=== PATIENT | female | born 1975 | race Caucasian/White ===

== ENCOUNTER 2020-11-15 13:51 | Emergency (ER) | payer BC, OTHER ==
[2020-11-15] MEDS ORDERED: SODIUM CHLORIDE 0.9% 1,000 ML IV STA ×2 (14:41)
--- NOTE | 2020-11-15 14:45 | ED ---
Fever HPI - General Chief Complaint: Fever Stated Complaint: EMILIANA Time Seen by Provider: 11/15/20 14:10 Source: patient, RN notes reviewed Mode of arrival: ambulatory Limitations: no limitations - History of Present Illness Initial Comments: This is a 45-year-old female who presents with complaints of fever bodyaches fatigue weakness lightheadedness increased thirst fevers chills and sweats going on for the past 10 days. She states she has she is here with some ALLERGY type symptoms approximately 2 weeks ago this did respond Zoll. She then about 10 days ago started having intermittent episodes of body aches and sinus congestion. She also has a cough today with clear phlegm she does states she drinks a lot of water but has noticed her urine output is less than is darker. She has had fevers chills sweats and over last day or 2 and started developing bilateral ear pain more so on the right than the left she is a nonsmoker is no history of asthma or COPD. She does feel slightly short of breath at this time. MD Complaint: fever, malaise, weakness, other - Related Data Home Medications Medication Instructions Recorded Confirmed Atorvastatin [Lipitor] 10 mg PO HS 11/15/20 11/15/20 Levothyroxine Sodium [Synthroid] 75 mcg PO DAILY 11/15/20 11/15/20 Venlafaxine HCl [Effexor XR] 150 mg PO HS 11/15/20 11/15/20 hydroCHLOROthiazide [Hydrodiuril] 12.5 mg PO DAILY 11/15/20 11/15/20 Previous Rx's Medication Instructions Recorded Albuterol Inhaler [Ventolin Hfa 2 puff INHALATION RT-QID #1 puff 11/15/20 Inhaler] Allergies Allergy/AdvReac Type Severity Reaction Status Date / Time No Known Allergies Allergy Verified 11/15/20 15:02 Review of Systems ROS Statement: Those systems with pertinent positive or pertinent negative responses have been documented in the HPI. ROS Other: All systems not noted in ROS Statement are negative. Past Medical History Past Medical History: No Reported History History of Any Multi-Drug Resistant Organisms: None Reported Past Surgical History: No Surgical Hx Reported Past Psychological History: Anxiety Smoking Status: Never smoker Past Alcohol Use History: None Reported Past Drug Use History: None Reported General Exam - General Exam Comments Initial Comments: This is a well-developed well-nourished awake alert oriented 3 female Limitations: no limitations General appearance: alert, in no apparent distress Head exam: Present: atraumatic, normocephalic, normal inspection Eye exam: Present: normal appearance, PERRL, EOMI. Absent: scleral icterus, conjunctival injection, periorbital swelling ENT exam: Present: mucous membranes dry, other (Bilateral erythema to both TMs more swelling right than the left some retraction noted on the right) Neck exam: Present: normal inspection. Absent: tenderness, meningismus, lymphadenopathy Respiratory exam: Present: decreased breath sounds. Absent: respiratory distress, wheezes, rales, rhonchi, stridor Cardiovascular Exam: Present: normal rhythm, tachycardia, normal heart sounds. Absent: systolic murmur, diastolic murmur, rubs, gallop, clicks GI/Abdominal exam: Present: soft, normal bowel sounds. Absent: distended, tenderness, guarding, rebound, rigid Extremities exam: Present: normal inspection, full ROM, normal capillary refill. Absent: tenderness, pedal edema, joint swelling, calf tenderness Back exam: Present: normal inspection Neurological exam: Present: alert, oriented X3, CN II-XII intact Psychiatric exam: Present: normal affect, normal mood Skin exam: Present: warm, dry, intact, normal color. Absent: rash Course Vital Signs 11/15/20 11/15/20 11/15/20 14:09 14:32 16:30 Temperature 102.7 F H Pulse Rate 121 H 108 H Respiratory 26 H 20 18 Rate Blood Pressure 121/75 130/81 O2 Sat by Pulse 93 L 96 Oximetry 11/15/20 11/15/20 17:07 18:10 Temperature 103 F H 101.3 F H Pulse Rate Respiratory Rate Blood Pressure O2 Sat by Pulse Oximetry Medical Decision Making - Medical Decision Making The patient was a candidate for the COVID-19 antibody. She did agree to have it there. She was in satisfactory condition for discharge after infusion. She had no side effects that she could proceed. She did get some improvement from an inhaler she will be discharged with a prescription for that we also discussed vitamin C, vitamin D 3 and zinc as well as possible melatonin use. He will follow-up with her doctor return when necessary - Lab Data Result diagrams: 11/15/20 14:51 11/15/20 14:51 Lab Results 11/15/20 11/15/20 11/15/20 Range/Units 14:45 14:51 14:51 WBC 6.9 (3.8-10.6) k/uL RBC 5.17 (3.80-5.40) m/uL Hgb 14.7 (11.4-16.0) gm/dL Hct 44.8 (34.0-46.0) % MCV 86.6 (80.0-100.0) fL MCH 28.4 (25.0-35.0) pg MCHC 32.8 (31.0-37.0) g/dL RDW 13.6 (11.5-15.5) % Plt Count 214 (150-450) k/uL MPV 7.2 Neutrophils % 83 % Lymphocytes % 13 % Monocytes % 2 % Eosinophils % 0 % Basophils % 0 % Neutrophils # 5.7 (1.3-7.7) k/uL Lymphocytes # 0.9 L (1.0-4.8) k/uL Monocytes # 0.1 (0-1.0) k/uL Eosinophils # 0.0 (0-0.7) k/uL Basophils # 0.0 (0-0.2) k/uL D-Dimer 1.05 H (<0.60) mg/L FEU Sodium (137-145) mmol/L Potassium (3.5-5.1) mmol/L Chloride (98-107) mmol/L Carbon Dioxide (22-30) mmol/L Anion Gap mmol/L BUN (7-17) mg/dL Creatinine (0.52-1.04) mg/dL Est GFR (CKD-EPI)AfAm (>60 ml/min/1.73 sqM) Est GFR (CKD-EPI)NonAf (>60 ml/min/1.73 sqM) Glucose (74-99) mg/dL Plasma Lactic Acid Drake (0.7-2.0) mmol/L Calcium (8.4-10.2) mg/dL Magnesium (1.6-2.3) mg/dL Total Bilirubin (0.2-1.3) mg/dL AST (14-36) U/L ALT (4-34) U/L Alkaline Phosphatase (38-126) U/L Creatine Kinase (30-135) U/L Troponin I (0.000-0.034) ng/mL C-Reactive Protein (<1.0) mg/dL NT-Pro-B Natriuret Pep pg/mL Total Protein (6.3-8.2) g/dL Albumin (3.5-5.0) g/dL Urine Color Urine Appearance (Clear) Urine pH (5.0-8.0) Ur Specific [place] (1.001-1.035) Urine Protein (Negative) Urine Glucose (UA) (Negative) Urine Ketones (Negative) Urine Blood (Negative) Urine Nitrite (Negative) Urine Bilirubin (Negative) Urine Urobilinogen (<2.0) mg/dL Ur Leukocyte Esterase (Negative) Coronavirus (PCR) Detected A (Not Detectd) 11/15/20 11/15/20 11/15/20 Range/Units 14:51 14:51 14:51 WBC (3.8-10.6) k/uL RBC (3.80-5.40) m/uL Hgb (11.4-16.0) gm/dL Hct (34.0-46.0) % MCV (80.0-100.0) fL MCH (25.0-35.0) pg MCHC (31.0-37.0) g/dL RDW (11.5-15.5) % Plt Count (150-450) k/uL MPV Neutrophils % % Lymphocytes % % Monocytes % % Eosinophils % % Basophils % % Neutrophils # (1.3-7.7) k/uL Lymphocytes # (1.0-4.8) k/uL Monocytes # (0-1.0) k/uL Eosinophils # (0-0.7) k/uL Basophils # (0-0.2) k/uL D-Dimer (<0.60) mg/L FEU Sodium 129 L (137-145) mmol/L Potassium 3.2 L (3.5-5.1) mmol/L Chloride 90 L (98-107) mmol/L Carbon Dioxide 30 (22-30) mmol/L Anion Gap 9 mmol/L BUN 21 H (7-17) mg/dL Creatinine 0.91 (0.52-1.04) mg/dL Est GFR (CKD-EPI)AfAm 88 (>60 ml/min/1.73 sqM) Est GFR (CKD-EPI)NonAf 76 (>60 ml/min/1.73 sqM) Glucose 99 (74-99) mg/dL Plasma Lactic Acid Drake 1.4 (0.7-2.0) mmol/L Calcium 9.8 (8.4-10.2) mg/dL Magnesium 1.7 (1.6-2.3) mg/dL Total Bilirubin 0.5 (0.2-1.3) mg/dL AST 37 H (14-36) U/L ALT 27 (4-34) U/L Alkaline Phosphatase 46 (38-126) U/L Creatine Kinase 76 (30-135) U/L Troponin I 0.018 (0.000-0.034) ng/mL C-Reactive Protein 7.5 H (<1.0) mg/dL NT-Pro-B Natriuret Pep pg/mL Total Protein 7.6 (6.3-8.2) g/dL Albumin 4.3 (3.5-5.0) g/dL Urine Color Urine Appearance (Clear) Urine pH (5.0-8.0) Ur Specific [place] (1.001-1.035) Urine Protein (Negative) Urine Glucose (UA) (Negative) Urine Ketones (Negative) Urine Blood (Negative) Urine Nitrite (Negative) Urine Bilirubin (Negative) Urine Urobilinogen (<2.0) mg/dL Ur Leukocyte Esterase (Negative) Coronavirus (PCR) (Not Detectd) 11/15/20 11/15/20 Range/Units 14:51 17:30 WBC (3.8-10.6) k/uL RBC (3.80-5.40) m/uL Hgb (11.4-16.0) gm/dL Hct (34.0-46.0) % MCV (80.0-100.0) fL MCH (25.0-35.0) pg MCHC (31.0-37.0) g/dL RDW (11.5-15.5) % Plt Count (150-450) k/uL MPV Neutrophils % % Lymphocytes % % Monocytes % % Eosinophils % % Basophils % % Neutrophils # (1.3-7.7) k/uL Lymphocytes # (1.0-4.8) k/uL Monocytes # (0-1.0) k/uL Eosinophils # (0-0.7) k/uL Basophils # (0-0.2) k/uL D-Dimer (<0.60) mg/L FEU Sodium (137-145) mmol/L Potassium (3.5-5.1) mmol/L Chloride (98-107) mmol/L Carbon Dioxide (22-30) mmol/L Anion Gap mmol/L BUN (7-17) mg/dL Creatinine (0.52-1.04) mg/dL Est GFR (CKD-EPI)AfAm (>60 ml/min/1.73 sqM) Est GFR (CKD-EPI)NonAf (>60 ml/min/1.73 sqM) Glucose (74-99) mg/dL Plasma Lactic Acid Drake (0.7-2.0) mmol/L Calcium (8.4-10.2) mg/dL Magnesium (1.6-2.3) mg/dL Total Bilirubin (0.2-1.3) mg/dL AST (14-36) U/L ALT (4-34) U/L Alkaline Phosphatase (38-126) U/L Creatine Kinase (30-135) U/L Troponin I (0.000-0.034) ng/mL C-Reactive Protein (<1.0) mg/dL NT-Pro-B Natriuret Pep 22 pg/mL Total Protein (6.3-8.2) g/dL Albumin (3.5-5.0) g/dL Urine Color Light Yellow Urine Appearance Clear (Clear) Urine pH 6.5 (5.0-8.0) Ur Specific [place] 1.015 (1.001-1.035) Urine Protein Negative (Negative) Urine Glucose (UA) Negative (Negative) Urine Ketones Negative (Negative) Urine Blood Negative (Negative) Urine Nitrite Negative (Negative) Urine Bilirubin Negative (Negative) Urine Urobilinogen <2.0 (<2.0) mg/dL Ur Leukocyte Esterase Negative (Negative) Coronavirus (PCR) (Not Detectd) - EKG Data -: EKG Interpreted by Me EKG shows normal: sinus rhythm EKG Comments: Sinus tachycardia 121. Interval 144 QRS 84 QT since QTC 360/448 nonspecific inferior configuration - Radiology Data Radiology results: report reviewed (Imaging reviewed evidence of bilateral infiltrates consistent with COVID-19 preceded complete report), image reviewed Disposition Clinical Impression: Pneumonia due to COVID-19 virus, Febrile illness, acute, Bronchospasm, acute Disposition: HOME SELF-CARE Condition: Good Instructions (If sedation given, give patient instructions): Fever in Adults (ED), Viral Pneumonia (ED) Prescriptions: Albuterol Inhaler [Ventolin Hfa Inhaler] 2 puff INHALATION RT-QID #1 puff Is patient prescribed a controlled substance at d/c from ED?: No Referrals: Stephen Leon MD [Primary Care Provider] - 1-2 days
[2020-11-15 15:00] LABS: Basophils % (A) 0 %; Eosinophils % (A) 0 %; HCT 44.8 % (34.0-46.0); HGB 14.7 gm/dL (11.4-16.0); Lymphocytes # (A) 0.9 k/uL (1.0-4.8); Lymphocytes % (A) 13 %; MCH 28.4 pg (25.0-35.0); MCHC 32.8 g/dL (31.0-37.0); MCV 86.6 fL (80.0-100.0); Mean Platelet Volume 7.2; Monocytes # (A) 0.1 k/uL (0-1.0); Monocytes % (A) 2 %; Neutrophils # (A) 5.7 k/uL (1.3-7.7); Neutrophils % (A) 83 %; Platelet Count 214 k/uL (150-450); RBC 5.17 m/uL (3.80-5.40); RDW 13.6 % (11.5-15.5); WBC 6.9 k/uL (3.8-10.6)
--- NOTE | 2020-11-15 15:06 | XR ---
EXAMINATION TYPE: XR chest 2V DATE OF EXAM: 11/15/2020 COMPARISON: NONE HISTORY: Fever TECHNIQUE: 2 views FINDINGS: There is coarse interstitial infiltrates in both lungs. Heart size is normal. There are no hilar masses. There is no pleural effusion. Bony thorax is intact. IMPRESSION: Mild bilateral interstitial pneumonia.
[2020-11-15 15:16] LABS: Albumin 4.3 g/dL (3.5-5.0); C Reactive Protein 7.5 mg/dL (<1.0); Calcium 9.8 mg/dL (8.4-10.2); Magnesium 1.7 mg/dL (1.6-2.3); Potassium 3.2 mmol/L (3.5-5.1); Total Bilirubin 0.5 mg/dL (0.2-1.3); Total Protein 7.6 g/dL (6.3-8.2)
[2020-11-15] MEDS ORDERED: ALBUTEROL HFA INHALER INHALATION STA (16:06)
[2020-11-15 16:31] VITALS: BP 130/81; PULSE 108; RESP 18
[2020-11-15] MEDS ORDERED: ACETAMINOPHEN TAB 500 MG TAB PO STA (17:06)
--- NOTE | 2020-11-15 17:21 | CT ---
EXAMINATION TYPE: CT angio chest DATE OF EXAM: 11/15/2020 COMPARISON: None HISTORY: elevated d-dimer, +covid CT DLP: 697 mGycm Automated exposure control for dose reduction was used. CONTRAST: Performed with IV Contrast, patient injected with 70cc mL of Isovue 370. There is patchy peripheral pulmonary interstitial infiltrates. This is seen in the upper and lower lo bes bilaterally. Thoracic aorta is intact. There is no evidence of aneurysm or dissection. There are a few paratracheal lymph nodes measuring less than 1 cm. There are no hilar masses. Heart size is campbell rly normal. There is no pericardial effusion. There is no pleural effusion. There is some fatty infil tration of the liver. I see no evidence of filling defect in the pulmonary arteries. The bony thorax is intact. There is no compression fracture. Sternum is intact. IMPRESSION: No evidence of pulmonary embolism. Patchy bilateral pulmonary interstitial pneumonia. Fatty infiltration of the liver.
[2020-11-15 17:51] LABS: Appearance,Urine Clear (Clear); Bilirubin,Urine Negative (Negative); Blood,Urine Negative (Negative); Color,Urine Light Yellow; Glucose,Urine (UA) Negative (Negative); Ketones,Urine Negative (Negative); Leukocyte Esterase,Urine Negative (Negative); Nitrite,Urine Negative (Negative); PH, Urine 6.5 (5.0-8.0); Protein,Urine Negative (Negative); Specific Gravity,Urine 1.015 (1.001-1.035); Urobilinogen,Urine <2.0 mg/dL (<2.0)
[2020-11-15] MEDS ORDERED: SODIUM CHLORIDE 0.9% 50 ML IVPB ONE (18:00)
[2020-11-15 18:11] VITALS: TEMP 101.3
[2020-11-15] MEDS ORDERED: BAMLANIVIMAB (EUA) 700 MG, ETESEVIMAB (EUA) 1,400 MG in SODIUM CHLORIDE 0.9% 50 ML IVPB ONE (18:15)
== END 2020-11-15 19:59 | disposition home or self-care (01) ==
LOC: EC 13:51
DX: U07.1 COVID-19 (principal); J12.82 Pneumonia due to coronavirus disease 2019; J98.01 Acute bronchospasm
CPT/HCPCS: 36415; 94640; 93005; 85379; 83880; 80053; 82550; 83605; 83735; 84484; 85025; 86140; 81003; 87040; 87635; 71046; 71275; 99285; 96365; Q9967; Q0245

== ENCOUNTER → 2024-11-21 | Outpatient (CLI) | payer BC ==
[2024-11-21 15:26] VITALS: BP 123/81; PULSE 61; RESP 16; TEMP 97.5
--- NOTE | 2024-11-21 16:03 | P.SLEEP ---
History of Present Illness DATE: 11/21/2024 CONSULTATION/NEW PATIENT EVALUATION HISTORY OF PRESENT ILLNESS/SLEEP-WAKE EVALUATION: 49-year-old lady had been e valuated in the sleep center for possible obstructive sleep apnea hypopnea syndrome. SLEEP SCHEDULE: Usually sleep schedule from 10 PM to 6:30 AM on working days and from 10 PM to 9 AM on weekend. FALLING ASLEEP: No problems with falling asleep, no TV in bedroom. DURING SLEEP: Patient has loud snoring, witnessed episodes of stop breathing during the sleep. Patient wakes up from sleep multiple times with up to 3 episodes of nocturia. Episodes of gasping for air, restless legs, sleep talking. Positive history of grinding and clenching teeth. No history of hypnogogical hallucinations, sleep paralysis, or cataplexy. DURING THE DAY/WAKE STATE: In the morning patient wake up tired, falling asleep during the day, positive history of irritability.. [place] sleepiness scale is significantly increased to 16. Usually patient does not take naps. PAST MEDICAL HISTORY: Coronary artery disease, heart attack in August 2024, hypertension, hypothyroidism, anxiety. PAST SURGICAL HISTORY: Stent insertion to coronary artery in August 2024, breast surgery many years ago. MEDICATIONS: Please see below. SOCIAL HISTORY: Please see below. FAMILY HISTORY: Please see below. REVIEW OF SYSTEMS: []. No fevers. No double vision. No recent chest pain. No shortness of breath. No abdominal pain. No bleeding episodes. No blood in urine. No seizure episodes. PHYSICAL EXAMINATION: GENERAL: A pleasant patient without any distress. VITAL SIGNS: Please see below, weight 238.6 pounds, BMI 38.1. HEENT: PERRLA, EOMI. Evaluation of oropharynx showed tongue protrudes midline, low position of soft palate Mallampati 23. NECK: Supple. No JVD. Thyroid is not palpable. 19.5 inches in circumference. LUNGS: Clear to percussion and to auscultation. Good air exchange. No wheezing or rhonchi. HEART: S1, S2 regular. No murmurs, gallops or rubs. ABDOMEN: Soft and nontender. Bowel sounds are present. No organomegaly appreciated. EXTREMITIES: No clubbing or cyanosis. SACK CLEANER: Awake, alert, and oriented x3. Cranial nerves 2 to 7 intact. There is no fasciculation or atrophy noted. No focal deficits observed. ASSESSMENT: 1. Loud snoring, witnessed episodes of stop breathing during the sleep, multiple awakenings from sleep, moderately low position of soft palate, extremely wide neck 19.5 inches in circumference, sleepiness with high [place] Sleepiness Scale 16. Obstructive sleep apnea hypopnea syndrome. 2. Coronary artery disease, status post heart attack and stent insertion in August 2024. 3. Obesity, BMI 38.1. 4. Hypertension. 5 hypothyroidism. 6 . Anxiety. 7. Hyperlipidemia. 8. Status post breast surgery many years ago. PLAN: 1. Polysomnography for evaluation of patient's breathing during sleep. 2. Following plan after reading sleep study. 3. Preferable position during sleep on the side. 4. No driving if patient feels any sleepiness. Patient is aware of civil and criminal liability for unsafe driving. 5. Sleep hygiene with regular sleep time for at least 7.5-8 hours. 6. Watching and losing weight. Thank you very much for referring this patient for consultation. Sincerely, Hai Butcher MD, PhD, FAASM. Diplomat of [place] [employer], Sleep Medicine Board by [place] [employer] [place] [employer] [facility] [place] cc: Stephen Leon MD Past Medical History Past Medical History: No Reported History, Hyperlipidemia, Hypertension, Myocardial Infarction ([place]), Thyroid Disorder Additional Past Medical History / Comment(s): Anxiety Last Myocardial Infarction Date:: 09/05/2024 History of Any Multi-Drug Resistant Organisms: None Reported Past Surgical History: No Surgical Hx Reported Additional Past Surgical History / Comment(s): heart cath w/Cardiac stent in Aug 2024, breast reduction/enlargement - 8th grade Past Psychological History: Anxiety Smoking Status: Former smoker Past Alcohol Use History: Rare Past Drug Use History: Marijuana - Past Family History Mother Family Medical History: Hypertension Father Additional Family Medical History / Comment(s): "Something about blood clotting - genetic X factor or something, has to be on blood thinner"" Medications and Allergies Home Medications Medication Instructions Recorded Confirmed Type Levothyroxine Sodium [Synthroid] 75 mcg PO DAILY 11/15/20 11/21/24 History Atorvastatin [Lipitor] 80 mg PO HS 09/05/24 11/21/24 History Venlafaxine HCl ER [Effexor XR] 75 mg PO HS 09/05/24 11/21/24 History Aspirin 81 mg PO DAILY tab 09/07/24 11/21/24 Rx Dapagliflozin Propanediol [Farxiga] 10 mg PO DAILY #90 tablet 09/07/24 11/21/24 Rx Metoprolol Tartrate [Lopressor] 25 mg PO BID #180 tab 09/07/24 11/21/24 Rx Nitroglycerin Sl Tabs [Nitrostat] 0.4 mg SUBLINGUAL Q5M PRN #25 tab 09/07/24 11/21/24 Rx Prasugrel [Effient] 10 mg PO DAILY #90 tab 09/07/24 11/21/24 Rx Sacubitril/Valsartan [Entresto 24 1 each PO BID #180 tablet 09/07/24 11/21/24 Rx mg-26 mg Tablet] Spironolactone [Aldactone] 12.5 mg PO DAILY #45 tablet 09/07/24 11/21/24 Rx Allergies Allergy/AdvReac Type Severity Reaction Status Date / Time No Known Allergies Allergy Verified 09/05/24 07:54 Physical Exam Vitals: Vital Signs Temp Pulse Resp BP Pulse Ox 11/21/24 15:23 97.5 F L 61 16 123/81 97 Intake and Output 11/21/24 11/21/24 11/21/24 06:59 14:59 22:59 Other: Weight 108.125 kg Sleep Note - Sleep Data ESS Total: 16 - Sleep Note Sleep Note: Temperature: 97.5 F Pulse Rate: 61 Respiratory Rate: 16 Blood Pressure: 123/81 SpO2: 97 Height: 5 ft 6.2 in Weight: 108.125 kg BMI: Neck Circumference: 19.5
== END ==
LOC: 3 N SLEEP 15:01
PROVIDERS: ATTEND Internal Medicine
DX: G47.33 Obstructive sleep apnea (adult) (pediatric) (principal); I25.10 Atherosclerotic heart disease of native coronary artery without angina pectoris; E66.9 Obesity, unspecified; I10 Essential (primary) hypertension; E03.9 Hypothyroidism, unspecified; F41.9 Anxiety disorder, unspecified; E78.5 Hyperlipidemia, unspecified; Z68.38 Body mass index [BMI] 38.0-38.9, adult; Z95.5 Presence of coronary angioplasty implant and graft; Z98.82 Breast implant status
CPT/HCPCS: 99211